=== PATIENT | female | born 1970 | race Caucasian/White ===

== ENCOUNTER 2017-01-24 08:30 | Outpatient (RCR) | payer MEDICAID, SELFPAY ==
[2017-01-14 01:01] VITALS: BP 135/89; PULSE 74; RESP 18; TEMP 36.6
[2017-01-24 08:40] VITALS: BP 130/88; PULSE 83; RESP 16; TEMP 36.6
--- NOTE | 2017-01-24 23:37 | PCM.WC.PN ---
Type of Wound Date of Service: 01/24/17 Chief Complaint: Nonhealing ulcer left breast with nonviable nipple and compromised surgical flaps. History of Wound: Surgery 08/12/16 - Surgical preparation left breast with incision and drainage and excisional debridement left breast wound infection abscess and partial secondary wound closure. Wound care - Santyl. Operative culture - Staphylococcus aureus and Enterobacter cloacae. She was on Levaquin PO and Ceftriaxone IV and has finished them. Anaerobic cocci was also present and she was placed on Flagyl and has finished them. Prealbumin from 08/11/16 was 20.7. She takes nutritional supplementation with protein to help the healing process. She was started on HBO for compromised left breast flaps. She had some trouble with her left ear with pain. So HBO was put on hold, then she restarted the HBO treatments and tolerated them and has finished them. She does have some complaints of blurring in her eyes. Sometimes that can happen with HBO and should resolve with time. If persistent after 2-3 months, will have her see Ophthalmology for evaluation. Today she denies fever. Her appetite is good. She is smoking again but states it is just a few per day. Progress of Wound: Healed. - Physical Exam Vital Signs Temp Pulse Resp BP 97.8 F 83 16 130/88 H 01/24/17 08:40 01/24/17 08:40 01/24/17 08:40 01/24/17 08:40 General: Alert, Oriented x3 HEENT: PERRLA, EOMI Neck: Supple Lungs: Clear to auscultation Cardiovascular: Regular rate, Regular Rhythm Skin: Ulcer/ Wound - left breast ulcer has healed. Wound Measurements and Assessment - Nurse 1 - General Ulcer Measurement Start: 01/24/17 08:40 Freq: Status: Active Protocol: Activity Type Activity Date Activity User E-Sign Co-Sign Detail Recorded Client Recorded Date Recorded By Document 01/24/17 08:40 DL [id number] 01/24/17 08:46 DL 01/24/17 08:40 Wound Center Nurse 1 [Ulcer Assessment Protocol: WC.WD.LOC] 1. L breast -Current Size (cm) - Length 0 -Current Size (cm) - Width 0 -Current Size (cm) - Depth 0 -Total Square Cm 0 -Photo Taken Yes -Epithelialization Large 67-100% -Exudate Amt None Present (0 %) -Wound Margin Flat & Intact -Granulation Amt Large (67-100%) -Granulation Quality [place] -Necrosis Amt None Present (0 %) -Structure Exposed N/A -Texture (Neena-wound Skin Appearance) Scarring -Moisture (Neena-wound Skin Appearance No Abnormality ) -Color (Neena-wound Skin Appearance) No Abnormality -Temperature (Neena-wound Skin No Abnormality Appearance) (Pt Warm) -Tenderness on Palpation (Neena-wound No Skin Appearance) -Ulcer Cleansing Rinsed/ Irrigated with Saline -Foul Odor after Cleansing No WC - Nurse 2 - General Ulcer CM Notes Start: 01/24/17 08:40 Freq: Status: Active Protocol: Activity Type Activity Date Activity User E-Sign Co-Sign Detail Recorded Client Recorded Date Recorded By Document 01/24/17 09:04 [id number] 01/24/17 09:05 01/24/17 09:04 Wound Center Nurse 2 [Procedure/Treatment] -Correct Patient No -Correct Side, Site, Position No -Correct Procedure No -Procedure Performed No -Post Debridement Size (cm) - Length 0 -Post Debridement Size (cm) - Width 0 -Post Debridement Size (cm) - Depth 0 -Total Square Cm 0 -Wound/Ulcer Outcome Healed- Epithelialized [See Physician Procedure note for Specifics] Pain Scale: 0-10 Numeric [Pain] -Is Patient Pain Free? Yes Neurological: Cranial nerves II-XII grossly intact Psych/Mental Status: Normal Affect, Appropriate Debridement Note Post-Debridement Measurements/Treatment WC - Nurse 2 - General Ulcer CM Notes Start: 01/24/17 08:40 Freq: Status: Active Protocol: Activity Type Activity Date Activity User E-Sign Co-Sign Detail Recorded Client Recorded Date Recorded By Document 01/24/17 09:04 [id number] 01/24/17 09:05 01/24/17 09:04 Wound Center Nurse 2 1. L breast -Correct Patient No -Correct Side, Site, Position No -Correct Procedure No -Procedure Performed No -Post Debridement Size (cm) - Length 0 -Post Debridement Size (cm) - Width 0 -Post Debridement Size (cm) - Depth 0 -Total Square Cm 0 -Wound/Ulcer Outcome Healed- Epithelialized Pain Scale: 0-10 Numeric Is Patient Pain Free? Yes Wound debrided: #1 Left breast. Laterality: Left Wound Grade/Stage: 2. No debridement was completed today - The ulcer has healed. Assessment/Plan Assessment: 1. Ulcer left breast, healed. 2. Compromised left breast flaps. 3. Bilateral macromastia. 4. Family history of breast cancer. 5. Smoker, quit for the surgery, and has restarted. 6. s/p bilateral breast reduction mammaplasty. 7. s/p surgical preparation left breast with incision and drainage and excisional debridement left breast wound infection abscess and partial secondary wound closure. Plan: The left breast ulcer has healed. Massage the scar with skin lotion daily to help soften up the scars. Discharge from Wound Center. Followup in office in 2 months to discuss further breast reconstruction surgery. She will also decide if she wants to do further breast reconstruction before or after her shoulder surgery that eventually needs to be done. If she still has persistent blurring in her eyes after another 2-3 months, will then recommend evaluation by Ophthalmology.
== END 2017-02-13 23:59 ==
LOC: WC 08:30
PROVIDERS: Visit Provider Surgery
DX: T86.821 Skin graft (allograft) (autograft) failure (principal); Z80.3 Family history of malignant neoplasm of breast; N62 Hypertrophy of breast; F17.200 Nicotine dependence, unspecified, uncomplicated
CPT/HCPCS: 99212; G0463